=== PATIENT | male | born 1985 | race Caucasian/White ===

== ENCOUNTER → 2021-03-27 14:26 | Outpatient (BNVA) | payer OTHER, SELFPAY | PROVIDERS: Family Provider Family Medicine; Referring Provider Nurse Practitioner Family; Visit Provider Physician Assistant | DX: S69.92XA Unspecified injury of left wrist, hand and finger(s), initial encounter (principal); X58.XXXA Exposure to other specified factors, initial encounter | CPT/HCPCS: 73110 ==

== ENCOUNTER 2021-03-27 15:33 | Outpatient (CLI) | payer OTHER, SELFPAY | END 2021-03-27 15:34 | disposition home or self-care (01) | LOC: SPT 15:34 | PROVIDERS: Family Provider Family Medicine; Visit Provider Podiatrist Foot & Ankle Surgery | DX: Z46.89 Encounter for fitting and adjustment of other specified devices (principal); S69.90XA Unspecified injury of unspecified wrist, hand and finger(s), initial encounter; X58.XXXA Exposure to other specified factors, initial encounter | CPT/HCPCS: L3908 ==

== ENCOUNTER 2021-07-03 13:37 | Outpatient (CLI) | payer OTHER, SELFPAY ==
--- NOTE | 2021-07-03 13:51 | MR_ITS ---
WS: [id number] INDICATION: LEFT wrist pain TECHNIQUE: MRI of the LEFT wrist without gadolinium enhancement. Axial T1 and T2 coronal T1 PD lyons l STIR sagittal T1 coronal 3-D FSPGR FINDINGS: Fluid within the distal radial ulnar joint with high-grade tear involving the TFCC. Diffuse edema abo ut the distal ulna involving the DRUJ and TFCC. Edema in the area of palpable abnormality along the u lnar aspect of the wrist high-grade tear of the ulnar collateral ligament. Disruption of the dorsal r adial ulnar ligament at the DRUJ. High-grade tear of the TFCC involving the ulna styloid and foveal a ttachment and extending to the DRUJ. Extensor carpi ulnaris appears normal. Suggestion of a tiny bony avulsion involving the distal ulna at the DRUJ dorsally. Bone marrow edema in this area. Small amoun t of edema along the dorsal intercarpal ligaments Normal scaphoid and lunate. Normal scapholunate interval. Cystic degenerative change involving the pr oximal and distal carpal row. Small amount of fluid in the proximal carpal row. Visualized proximal m etacarpals are normal in appearance. Normal 1st CMC. Distal radius is normal in appearance. Normal francie ne marrow signal. Normal extensor and flexor compartment tendons. MR/MR wrist LT wo con* [id number] IMPRESSION: 1. High-grade tear of the TFCC involving the foveal attachment and extending t o the DRUJ. This extends laterally to the ulna collateral ligament insertion. A ssociated edema about the distal ulna. 2. High-grade tear involving the ulnar collateral ligament in the area of palp able abnormality with subcutaneous edema. Edema extends to the ulna styloid att achment. 3. High-grade tear with disruption of the dorsal radial ulnar ligament with ma rked widening of the DRUJ. 4. Suggestion of a tiny bony avulsion involving the distal ulna dorsally and m edially at the DRUJ. 5. Distal radius is normal in appearance. Normal scaphoid and lunate. 6. Small amount of fluid along the extensor retinaculum.
== END 2021-07-03 13:38 | disposition home or self-care (01) ==
PROVIDERS: Family Provider Family Medicine
DX: S63.592A Other specified sprain of left wrist, initial encounter (principal); X58.XXXA Exposure to other specified factors, initial encounter
CPT/HCPCS: 73221